=== PATIENT | female | born 1950 | race Caucasian/White ===

== ENCOUNTER 2021-06-20 03:55 | Inpatient (IN) ==
[~2021-06-20 03:55] MED LIST: Melatonin 3 MG TABLET PO PRN; Naloxone 0.4 MG/ML INJ IVP PRN; Ondansetron 4 MG/2 ML VIAL IVP PRN
[2021-06-20] MEDS ORDERED: 0.9 % Sodium Chloride 1,000 ML IVC SCH (04:00)
[2021-06-20 04:39] LABS: Hematocrit 34.3 % (35.3-44.9); Hemoglobin 10.8 g/dL (11.5-15.4); Mean Corpuscular HGB Conc 31.5 g/dL (31.6-35.5); Mean Corpuscular Volume 95.3 fL (83.0-100.0); Mean Platelet Volume 10.4 fL (9.4-12.4); Platelet Count 238 K/mcL (140-400); Red Cell Distribution Width 13.3 % (11.5-14.5); White Blood Count 6.1 K/mcL (4.3-11.1)
[2021-06-20] MEDS: Ipratropium/Albuterol Neb 3 ML IH SCH ×6 (04:49→23:48)
[2021-06-20 05:03] LABS: BUN/Creatinine Ratio 38 (6-26); Blood Urea Nitrogen 25 mg/dL (8-23); C-Reactive Protein > 300 mg/L (Less than 10); Calcium 8.7 mg/dL (8.6-10.3); Carbon Dioxide 17 mEq/L (23-29); Chloride 106 mEq/L (98-107); Glucose 82 mg/dL (70-105); Magnesium 1.6 mg/dL (1.6-2.6); Osmolality,Calculated 287 (280-300); Potassium 3.2 mEq/L (3.5-5.1); Sodium 137 mEq/L (136-145); Troponin I < 0.03 ng/mL (< 0.04); eGFR For African Americans > 60 (> 60); eGFR For Non-African Americans > 60 (> 60)
[2021-06-20] MEDS: *HR* Enoxaparin 40 MG/0.4 ML SYRINGE SQ SCH (05:45)
[2021-06-20] MEDS: MethylPREDNISolone 40 MG/ML VIAL IVP SCH ×3 (05:45→16:58)
[2021-06-20] MEDS ORDERED: *HR* LORazepam 2 MG/ML VIAL IVP ONE (06:46)
[2021-06-20 06:54] LABS: ABG Base Excess -10 mEq/L (-2 to 3); ABG HCO3 15 mEq/L (21-27); ABG Oxygen Saturation 89 % (95-98); ABG PCO2 30 mmHg (35-45); ABG PO2 61 mmHg (85-104); ABG TCO2 16 mEq/L (20-26)
[2021-06-20] MEDS ORDERED: Piperacillin/Tazobactam 3.375 GM in 0.9 % Sodium Chloride Mini Bag 100 ML IVPB SCH (08:00)
[2021-06-20] MEDS: Azithromycin 500 MG in 0.9 % Sodium Chloride 250 ML IVPB SCH (08:48)
[2021-06-20 12:45] LABS: VBG HCO3 15 mEq/L (21-27); VBG PCO2 35 mmHg (41-51); VBG PH 7.23 pH Units (7.32-7.42); VBG PO2 151 mmHg (25-50)
[2021-06-20] MEDS: Nicotine 7 MG PATCH.TD24 TD SCH (14:46)
[2021-06-20 16:25] LABS: ABG Base Excess -11 mEq/L (-2 to 3); ABG HCO3 14 mEq/L (21-27); ABG Oxygen Saturation 90 % (95-98); ABG PCO2 31 mmHg (35-45); ABG PH 7.28 pH Units (7.32-7.45); ABG PO2 64 mmHg (85-104); ABG TCO2 15 mEq/L (20-26); Blood Gas Modality CPAP/PS
[2021-06-20] MEDS: Cefepime HCl 2,000 MG in 0.9 % Sodium Chloride 10 ML IVP SCH (16:57)
[2021-06-20 21:52] LABS: ABG Base Excess -11 mEq/L (-2 to 3); ABG HCO3 13 mEq/L (21-27); ABG Oxygen Saturation 93 % (95-98); ABG PCO2 25 mmHg (35-45); ABG PH 7.34 pH Units (7.32-7.45); ABG PO2 68 mmHg (85-104); ABG TCO2 14 mEq/L (20-26); Blood Gas Modality ST
[2021-06-20] MEDS ORDERED: Morphine Sulfate 2 MG/ML SYRINGE IVP ONE (22:20)
[2021-06-21] MEDS: Cefepime HCl 2,000 MG in 0.9 % Sodium Chloride 10 ML IVP SCH ×3 (00:17→17:01)
[2021-06-21] MEDS ORDERED: *HR* Metoprolol 5 MG/5 ML VIAL IVP ONE (00:28)
[2021-06-21 02:28] LABS: Basophils # 0.1 K/mcL (0.0-0.2); Basophils % 0.6 %; Hematocrit 31.5 % (35.3-44.9); Hemoglobin 10.2 g/dL (11.5-15.4); Immature Granulocytes % 1.5 % (0-4); Lymphocytes # 0.5 K/mcL (0.6-4.6); Lymphocytes % 4.2 %; Mean Corpuscular HGB Conc 32.4 g/dL (31.6-35.5); Mean Corpuscular Hemoglobin 30.1 pg (28.0-33.3); Mean Corpuscular Volume 92.9 fL (83.0-100.0); Mean Platelet Volume 10.4 fL (9.4-12.4); Monocytes # 0.3 K/mcL (0.0-1.3); Monocytes % 2.4 %; Neutrophils # 10.6 K/mcL (1.6-8.9); Platelet Count 219 K/mcL (140-400); Red Blood Count 3.39 M/mcL (3.82-4.97); Red Cell Distribution Width 13.4 % (11.5-14.5); Segmented Neutrophils % 91.3 %
[2021-06-21 02:32] LABS: White Blood Count 11.6 K/mcL (4.3-11.1)
[2021-06-21] MEDS: Dexmedetomidine HCl 400 MCG/100 ML MLS IVC SCH ×2 (02:39→16:52)
[2021-06-21 02:43] LABS: BUN/Creatinine Ratio 50 (6-26); Blood Urea Nitrogen 28 mg/dL (8-23); Carbon Dioxide 18 mEq/L (23-29); Chloride 112 mEq/L (98-107); Glucose 135 mg/dL (70-105); Osmolality,Calculated 312 (280-300); Potassium 3.5 mEq/L (3.5-5.1); Sodium 147 mEq/L (136-145); eGFR For African Americans > 60 (> 60); eGFR For Non-African Americans > 60 (> 60)
[2021-06-21 02:51] LABS: Platelet Estimate Normal (Normal)
[2021-06-21] MEDS: Ipratropium/Albuterol Neb 3 ML IH SCH ×6 (03:10→23:18)
[2021-06-21] MEDS: *HR* Enoxaparin 40 MG/0.4 ML SYRINGE SQ SCH (05:07)
[2021-06-21] MEDS: MethylPREDNISolone 40 MG/ML VIAL IVP SCH ×2 (05:07→17:01)
[2021-06-21 08:12] LABS: ABG Base Excess -5 mEq/L (-2 to 3); ABG HCO3 20 mEq/L (21-27); ABG Oxygen Saturation 96 % (95-98); ABG PCO2 33 mmHg (35-45); ABG PH 7.37 pH Units (7.32-7.45); ABG PO2 84 mmHg (85-104); ABG TCO2 21 mEq/L (20-26)
[2021-06-21] MEDS: Nicotine 7 MG PATCH.TD24 TD SCH (08:52)
[2021-06-21] MEDS: Azithromycin 500 MG in 0.9 % Sodium Chloride 250 ML IVPB SCH (08:53)
[2021-06-21 13:01] LABS: BUN/Creatinine Ratio 53 (6-26); Blood Urea Nitrogen 31 mg/dL (8-23); Calcium 9.4 mg/dL (8.6-10.3); Carbon Dioxide 18 mEq/L (23-29); Chloride 115 mEq/L (98-107); Glucose 150 mg/dL (70-105); Osmolality,Calculated 319 (280-300); Potassium 2.8 mEq/L (3.5-5.1); Sodium 150 mEq/L (136-145); eGFR For African Americans > 60 (> 60); eGFR For Non-African Americans > 60 (> 60)
[2021-06-21] MEDS ORDERED: Potassium Chloride Elixir 20 MEQ/15 ML UDC PO ONE ×2 (13:34→13:35)
[2021-06-21 15:52] LABS: BUN/Creatinine Ratio 50 (6-26); Blood Urea Nitrogen 29 mg/dL (8-23); Calcium 9.7 mg/dL (8.6-10.3); Carbon Dioxide 20 mEq/L (23-29); Chloride 114 mEq/L (98-107); Glucose 133 mg/dL (70-105); Osmolality,Calculated 320 (280-300); Potassium 3.3 mEq/L (3.5-5.1); Sodium 151 mEq/L (136-145); eGFR For African Americans > 60 (> 60); eGFR For Non-African Americans > 60 (> 60)
[2021-06-21] MEDS ORDERED: D5% in Water 1,000 ML IVC SCH ×2 (16:45)
[2021-06-21] MEDS ORDERED: *HR* LORazepam 2 MG/ML VIAL IVP PRN (16:51)
[2021-06-21 17:16] LABS: Alanine Aminotransferase 6 Units/L (7-52); Alkaline Phosphatase 75 Units/L (34-104); Aspartate Amino Transferase 14 Units/L (13-39); BUN/Creatinine Ratio 51 (6-26); Bilirubin,Total 0.4 mg/dL (0.3-1.0); Blood Urea Nitrogen 30 mg/dL (8-23); Calcium 9.4 mg/dL (8.6-10.3); Carbon Dioxide 18 mEq/L (23-29); Chloride 117 mEq/L (98-107); Globulin 3.1 g/dL (2.4-3.5); Glucose 153 mg/dL (70-105); Osmolality,Calculated 321 (280-300); Potassium 3.2 mEq/L (3.5-5.1); Sodium 151 mEq/L (136-145); Total Protein 6.1 g/dL (6.4-8.9); eGFR For African Americans > 60 (> 60); eGFR For Non-African Americans > 60 (> 60)
[2021-06-21 17:31] LABS: ABG Base Excess -5 mEq/L (-2 to 3); ABG HCO3 20 mEq/L (21-27); ABG Oxygen Saturation 93 % (95-98); ABG PCO2 34 mmHg (35-45); ABG PH 7.37 pH Units (7.32-7.45); ABG PO2 68 mmHg (85-104); ABG TCO2 21 mEq/L (20-26)
[2021-06-21] MEDS ORDERED: Albumin 25% 25gram/100mL 25 GM/100 ML IV.SOLN IVPB ONE (17:31)
[2021-06-21] MEDS: Morphine Sulfate 2 MG/ML SYRINGE IVP PRN (21:30)
[2021-06-22] MEDS: Cefepime HCl 2,000 MG in 0.9 % Sodium Chloride 10 ML IVP SCH ×4 (00:54→23:12)
[2021-06-22] MEDS: *HR* LORazepam 2 MG/ML VIAL IVP PRN ×3 (01:19→18:51)
[2021-06-22] MEDS: Dexmedetomidine HCl 400 MCG/100 ML MLS IVC SCH ×4 (01:22→23:22)
[2021-06-22] MEDS ORDERED: *HR* Metoprolol 5 MG/5 ML VIAL IVP PRN (01:45)
[2021-06-22 02:59] LABS: Hematocrit 24.8 % (35.3-44.9); Mean Corpuscular HGB Conc 33.9 g/dL (31.6-35.5); Mean Corpuscular Hemoglobin 30.9 pg (28.0-33.3); Mean Corpuscular Volume 91.2 fL (83.0-100.0); Mean Platelet Volume 10.4 fL (9.4-12.4); Platelet Count 137 K/mcL (140-400); Red Blood Count 2.72 M/mcL (3.82-4.97); Red Cell Distribution Width 13.5 % (11.5-14.5); White Blood Count 13.8 K/mcL (4.3-11.1)
[2021-06-22 03:00] LABS: Hemoglobin 8.4 g/dL (11.5-15.4)
[2021-06-22 03:17] LABS: Sodium 149 mEq/L (136-145)
[2021-06-22] MEDS: Ipratropium/Albuterol Neb 3 ML IH SCH ×6 (03:51→23:52)
[2021-06-22] MEDS: MethylPREDNISolone 40 MG/ML VIAL IVP SCH ×2 (05:15→17:21)
[2021-06-22] MEDS: *HR* Enoxaparin 40 MG/0.4 ML SYRINGE SQ SCH (05:16)
[2021-06-22] MEDS: Morphine Sulfate 2 MG/ML SYRINGE IVP PRN ×2 (06:01→19:52)
[2021-06-22 08:07] LABS: BUN/Creatinine Ratio 48 (6-26); Blood Urea Nitrogen 33 mg/dL (8-23); Carbon Dioxide 19 mEq/L (23-29); Chloride 117 mEq/L (98-107); Glucose 193 mg/dL (70-105); Osmolality,Calculated 321 (280-300); Potassium 3.2 mEq/L (3.5-5.1); eGFR For African Americans > 60 (> 60); eGFR For Non-African Americans > 60 (> 60)
[2021-06-22] MEDS: Nicotine 7 MG PATCH.TD24 TD SCH (08:30)
[2021-06-22] MEDS ORDERED: Azithromycin 500 MG in 0.9 % Sodium Chloride 250 ML IVPB SCH (09:00)
[2021-06-22] MEDS ORDERED: Azithromycin 250 MG TABLET PO SCH (09:00)
[2021-06-22 11:23] LABS: Hematocrit 27.4 % (35.3-44.9); Hemoglobin 9.3 g/dL (11.5-15.4)
[2021-06-22] MEDS ORDERED: Furosemide 40 MG/4 ML VIAL IVP ONE (11:24)
[2021-06-22 11:54] LABS: Bilirubin,Urine Negative (Negative); Blood,Urine Trace (Negative); Clarity,Urine Clear (Clear); Color,Urine Yellow (Yellow); Glucose,Urine (UA) Normal (Normal); Hyaline Casts,Urine Few per lpf (None Seen); Ketones,Urine 10 mg/dL (Negative); Leukocyte Esterase,Urine Negative (Negative); Mucus,Urine Few per lpf (None-Few); Nitrite,Urine Negative (Negative); PH,Urine 6.5 pH Units (5.0-8.0); Protein,Urine 100 mg/dL (Neg-Trace); RBC,Urine 0-3 per hpf (0-3); Specific Gravity,Urine > 1.030 (1.010-1.025); Squamous Epithelial Cell,Urine Few per hpf (None-Few); Urobilinogen,Urine Normal (Normal)
[2021-06-22] MEDS ORDERED: D5% in Water 1,000 ML IVC SCH (12:45)
[2021-06-22] MEDS: Nicotine 21 MG PATCH.TD24 TD SCH (13:08)
[2021-06-22] MEDS ORDERED: Azithromycin 500 MG in D5% in Water 250 ML IVPB SCH (14:00)
[2021-06-22] MEDS: POTASSIUM CHLORIDE IVPB SCH ×4 (16:11→19:11)
[2021-06-22] MEDS: D5 IVPB SCH ×4 (16:11→19:11)
[2021-06-22] MEDS: D5% in Water 1,000 ML IVC SCH (16:11)
[2021-06-22] MEDS: WATER IVPB SCH ×4 (16:11→19:11)
[2021-06-22] MEDS ORDERED: *HR* Metoprolol 5 MG/5 ML VIAL IVP ONE (22:28)
[2021-06-23] MEDS: Morphine Sulfate 2 MG/ML SYRINGE IVP PRN ×6 (02:36→15:34)
[2021-06-23] MEDS: *HR* LORazepam 2 MG/ML VIAL IVP PRN ×2 (03:11→09:31)
[2021-06-23] MEDS ORDERED: *HR* LORazepam 2 MG/ML VIAL IVP ONE (03:20)
[2021-06-23] MEDS: Ipratropium/Albuterol Neb 3 ML IH SCH ×4 (03:42→15:21)
[2021-06-23] MEDS: Dexmedetomidine HCl 400 MCG/100 ML MLS IVC SCH ×3 (05:18→15:23)
[2021-06-23] MEDS: *HR* Enoxaparin 40 MG/0.4 ML SYRINGE SQ SCH (05:19)
[2021-06-23] MEDS: MethylPREDNISolone 40 MG/ML VIAL IVP SCH (05:19)
[2021-06-23] MEDS: D5% in Water 1,000 ML IVC SCH (05:39)
[2021-06-23] MEDS: Nicotine 21 MG PATCH.TD24 TD SCH (07:40)
[2021-06-23] MEDS: Cefepime HCl 2,000 MG in 0.9 % Sodium Chloride 10 ML IVP SCH (07:40)
[2021-06-23 08:35] LABS: Hematocrit 28.7 % (35.3-44.9); Hemoglobin 9.4 g/dL (11.5-15.4); Mean Corpuscular HGB Conc 32.8 g/dL (31.6-35.5); Mean Corpuscular Volume 91.7 fL (83.0-100.0); Mean Platelet Volume 10.9 fL (9.4-12.4); Platelet Count 112 K/mcL (140-400); Red Blood Count 3.13 M/mcL (3.82-4.97); Red Cell Distribution Width 13.8 % (11.5-14.5); White Blood Count 11.6 K/mcL (4.3-11.1)
[2021-06-23 08:37] VITALS: TEMP 97.6
[2021-06-23 08:58] LABS: BUN/Creatinine Ratio 51 (6-26); Blood Urea Nitrogen 26 mg/dL (8-23); Carbon Dioxide 25 mEq/L (23-29); Chloride 109 mEq/L (98-107); Glucose 215 mg/dL (70-105); Osmolality,Calculated 311 (280-300); Potassium 3.4 mEq/L (3.5-5.1); Sodium 145 mEq/L (136-145); eGFR For African Americans > 60 (> 60); eGFR For Non-African Americans > 60 (> 60)
[2021-06-23] MEDS ORDERED: *HR* LORazepam 2 MG/ML VIAL IVP PRN ×3 (09:38→14:29)
[2021-06-23] MEDS ORDERED: Haloperidol Lactate 5 MG/ML VIAL IVP PRN (09:54)
[2021-06-23] MEDS ORDERED: Atropine Sulfate 1% 40 DROP/2 ML BOTTLE SL PRN (09:55)
[2021-06-23] MEDS ORDERED: FentaNYL (PF) 1,000 MCG/100 ML IV.SOLN IVC SCH (10:00)
[2021-06-23 10:50] VITALS: BP 116/76
[2021-06-23 13:07] VITALS: O2SAT 96
[2021-06-23 13:09] VITALS: PULSE 102
== END 2021-06-23 17:53 | disposition expired | DRG 871 ==
LOC: 2NNU → SUATTDRO 03:55
PROVIDERS: ADMIT Student in an Organized Health Care Education/Training Program; ATTEND Family Medicine